=== PATIENT | female | born 1985 | race Caucasian/White ===

== ENCOUNTER → 2022-05-23 08:05 | Outpatient (CLI) | payer BC, SELFPAY ==
--- NOTE | ~2022-05-23 | US_ITS ---
US thyroid INDICATION: Thyroid nodule TECHNIQUE: Real-time sonographic images of the thyroid gland were obtained. COMPARISON: No prior studies for comparison. FINDINGS: The right thyroid lobe measures 5.2 x 1.6 x 1.3 cm. The left thyroid lobe measures 4.3 x 1 .8 x 1.3 cm. There is normal echotexture and echogenicity throughout the thyroid gland. There are sma ll bilateral thyroid cysts, largest measuring 4 mm, benign. No solid thyroid masses. Normal vascular flow is present. IMPRESSION: 1. Small bilateral thyroid cysts measuring up to 4 mm in the left lobe. Otherwise, unremarkable thyr oid ultrasound. Reviewed, dictated and finalized at location D. [facility] IMPRESSION: 1. Small bilateral thyroid cysts measuring up to 4 mm in the left lobe. Otherw ise, unremarkable thyroid ultrasound.
== END ==
PROVIDERS: PCP Internal Medicine Endocrinology, Diabetes & Metabolism; Visit Provider Internal Medicine Endocrinology, Diabetes & Metabolism
DX: E04.9 Nontoxic goiter, unspecified (principal)
CPT/HCPCS: 76536

== ENCOUNTER 2022-08-02 11:51 | Outpatient (CLI) | payer BC, SELFPAY ==
[2022-08-02 16:53] LABS: Kit Draw Collected
== END 2022-08-02 11:52 | disposition home or self-care (01) ==
LOC: ANHGOSHLAB 11:53
PROVIDERS: PCP Internal Medicine; Visit Provider Clinical Nurse Specialist
DX: R10.9 Unspecified abdominal pain (principal); E55.9 Vitamin D deficiency, unspecified; E16.2 Hypoglycemia, unspecified; R14.0 Abdominal distension (gaseous); D50.9 Iron deficiency anemia, unspecified
CPT/HCPCS: 36415

== ENCOUNTER 2022-08-02 12:46 | Outpatient (CLI) | payer BC, SELFPAY ==
--- NOTE | ~2022-08-02 | CT_ITS ---
EXAMINATION: CT abdomen pelvis w con INDICATION: Severe left lower quadrant pain TECHNIQUE: Computed tomographic images of the abdomen and pelvis were obtained after the administrati on of 100 cc of Omnipaque 350 intravenous contrast. The dose-length product (DLP) was 1632.53 mGy-cm. Automated exposure control and iterative reconstruction technique were employed. COMPARISON: None available FINDINGS: Minimal dependent atelectasis is present in the lung bases. The heart size is normal. Surgi george changes in the stomach likely relate to weight loss surgery. The gallbladder is surgically absent . The liver, spleen, pancreas, and adrenal glands are normal. No pathologically enlarged abdominal or pelvic lymph nodes are identified. There is no free intraperitoneal gas or evidence of bowel obstruc tion. The appendix is normal. An IUD is present in the uterus. There is mild lower lumbar spondylosis . Lucent centered calcifications anteriorly in the lower abdominal likely reflect areas of fat necros is related to prior surgery. IMPRESSION: 1. No CT correlate for the patient's symptoms. Reviewed, dictated and finalized at location B. [facility]
== END 2022-08-02 12:47 | disposition home or self-care (01) ==
LOC: ANHIMG 12:50
PROVIDERS: PCP Internal Medicine; Visit Provider Clinical Nurse Specialist
DX: R10.32 Left lower quadrant pain (principal)
CPT/HCPCS: 74177; Q9967

== ENCOUNTER 2022-09-29 01:35 | Day surgery (SDC) | payer BC, SELFPAY ==
[2022-09-19 13:56] VITALS: BMI 41.6
[2022-09-29 10:02] VITALS: BP 112/77; PULSE 77; RESP 20; TEMP 35.9; O2SAT 100
[2022-09-29] MEDS: LACTATED RINGERS 1,000 ML 150 ML IV CONT (10:18)
--- NOTE | 2022-09-29 10:33 | PM.HPGS ---
History of Present Illness History of Present Illness Consent: Risks, benefits, and alternatives have been discussed and questions answered. Patient agrees to proceed with procedure. Chief complaint: nausea, LLQP, Lower Abdominal pain, gaseous Narrative: Sushant Pritchard is a 37 year old female here for egd and colonoscopy. She had gastric bypass rou-en-y 2011 for weight loss, cholecystectomy 2012 with hernia repair and since with GI issues. She would have nausea after taking her medicines and sometimes will have to use restroom right away, never had normal BM, normally from constipation to loose. Recent office visit after severe pain in llq but resolved since nad CT scan without major findings, never had colonoscopy, had egd before gastric surgery. Review of Systems Constitutional: Constitutional: Denies headache(s) and Denies weakness Eyes: Eyes: Denies blurry vision ENT: Reports Normal hearing present, Denies headache(s) and Denies neck pain Cardiovascular: Cardiovascular: Denies chest pain and Denies dyspnea Respiratory: Respiratory: Denies dyspnea Gastrointestinal: Gastrointestinal: Reports no additional gastrointestinal complaints Genitourinary: Genitourinary: Denies dysuria Musculoskeletal: Musculoskeletal: Denies neck pain Integumentary/Breasts: Skin/Breast: Denies dry skin Neurologic: Reports Normal hearing present, Denies headache(s) and Denies weakness Psychiatric: Psychiatric: Denies anxiety Endocrine: Endocrine: Denies change in body appearance Hematologic/Lymphatic: Hematologic/Lymphatic: Denies easy bleeding Allergic/Immunologic: Allergic/Immunologic: Denies urticaria PMFSH Past Medical History Medical History (Updated 08/24/22 @ 14:50 by Carroll Pierce MD) Allergies Chicken pox Cholecystectomy planned Chronic pain Depression Generalized anxiety disorder Hernia Hypertension Insomnia Iron deficiency anemia LLQ pain Migraine Nausea Obesity PTSD (post-traumatic stress disorder) Tremor Surgical History Surgical History (Updated 08/24/22 @ 14:50 by Carroll Pierce MD) H/O abdominoplasty H/O bilateral breast reduction surgery H/O gastric bypass H/O LEEP January 2019 History of surgery on arm Brachioplasty Family History Family History Mother Diabetes mellitus Father Hypertension Family history of transient ischemic attacks Other Family history of malignant neoplasm of brain Social History Social History (Reviewed 08/24/22 @ 14:24 by SADI Owen Smoking status: Never smoker Second hand tobacco smoke exposure: No Alcohol intake: never Substance use: current Substance use type: marijuana Last use: daily Lack of Transportation: No Lack of Food: Never True Current Housing: I Have Housing Concerned About Future Housing: No Difficulty Paying Gas/Electric Bills: No Difficulty Paying for Meds: No Currently Unemployed: No Education: Master's Degree or Higher Difficulty w/ Childcare or Family Care: No Living arrangements: alone Spiritual care concerns: No Meds Home Medications and Allergies Home Medications Medication Instructions Recorded Confirmed Type multivitamin 1 tablet PO DAILY 07/08/19 09/20/22 History spironolactone 100 mg tablet 100 mg PO BID 07/08/19 09/20/22 History dextroamphetamine-amphetamine 20 20 mg PO TID 11/08/21 09/20/22 History mg tablet (Adderall) vitamin [id number] B1 100 mg-1 100 ml IM .once weekly 11/08/21 09/20/22 History mg/mL intramuscular solution lorazepam 1 mg tablet 2 mg PO BID 03/09/22 09/20/22 History sertraline 100 mg tablet 200 mg PO DAILY 03/09/22 09/20/22 History dicyclomine 10 mg capsule 10 mg PO TID PRN abdominal 08/02/22 09/20/22 Rx discomfort #30 caps doxepin 50 mg capsule 100 mg PO HS 08/02/22 09/20/22 History epinephrine 0.3 mg/0.3 mL 0.3 mg (0.3 mL) subcut ONCE #2 ea 08/02/22
--- NOTE | 2022-09-29 10:37 | WPDANESEPPF ---
Anes - Initial Pre Proc Eval Procedure: Operation Date: 09/29/22 11:15 Proposed Procedures p Esophagogastroduodenoscopy & Colonoscopy - Carroll Pierce MD Date/Time: 09/29/22 10:37 Surgeon: Carroll Pierce MD Pre Op Diagnosis: nausea, LLQP, Lower Abdominal pain, gaseous Patient Data Age: 37 Gender: F Height: 1.78 m Weight: 136.3 kg Last Vital Signs Temp 96.7 F L 09/29/22 10:02 Pulse 77 09/29/22 10:02 Resp 20 09/29/22 10:02 BP 112/77 09/29/22 10:02 Pulse Ox 100 09/29/22 10:02 O2 Del Method Room Air 09/29/22 10:02 Allergies Allergy/AdvReac Type Severity Reaction Status Date / Time egg Allergy Severe Difficulty Verified 09/29/22 09:59 Swallowing shellfish derived Allergy Stopped Verified 09/29/22 09:59 Breathing NSAIDS (Non-Steroidal AdvReac Severe Stomach Verified 09/29/22 09:59 Anti-Inflamma ulcers aspirin AdvReac Unknown Stomach Verified 09/29/22 09:59 ulcers tree nuts Allergy Severe Stopped Uncoded 09/29/22 09:59 Breathing coban AdvReac Hives Uncoded 09/29/22 09:59 Home Medications Medication Instructions Recorded Confirmed Type multivitamin 1 tablet PO DAILY 07/08/19 09/20/22 History spironolactone 100 mg tablet 100 mg PO BID 07/08/19 09/20/22 History dextroamphetamine-amphetamine 20 20 mg PO TID 11/08/21 09/20/22 History mg tablet (Adderall) vitamin Y77-cewsjia B1 100 mg-1 100 ml IM .once weekly 11/08/21 09/20/22 History mg/mL intramuscular solution lorazepam 1 mg tablet 2 mg PO BID 03/09/22 09/20/22 History sertraline 100 mg tablet 200 mg PO DAILY 03/09/22 09/20/22 History dicyclomine 10 mg capsule 10 mg PO TID PRN abdominal 08/02/22 09/20/22 Rx discomfort #30 caps doxepin 50 mg capsule 100 mg PO HS 08/02/22 09/20/22 History epinephrine 0.3 mg/0.3 mL 0.3 mg (0.3 mL) subcut ONCE #2 ea 08/02/22 09/20/22 Rx injection syringe ergocalciferol (vitamin D2) 1,250 1,250 mcg PO WEEKLY 08/02/22 09/20/22 History mcg (50,000 unit) capsule levonorgestrel 21 mcg/24 hours (8 1 device intrauterine ONCE 08/02/22 09/20/22 History yrs) 52 mg intrauterine device (Mirena) liothyronine 5 mcg tablet 5 mcg PO HS 08/02/22 09/20/22 History ondansetron HCl 4 mg tablet 4 mg PO DAILY PRN Nausea 08/02/22 09/20/22 History tirzepatide 5 mg/0.5 mL 5 mg subcut WEEKLY 08/02/22 09/20/22 History subcutaneous pen injector (Mounjaro) rizatriptan 10 mg tablet See Rx Instructions .Route 08/09/22 09/20/22 Rx .COMPLEX #9 tabs buspirone 15 mg tablet 10 mg PO BID 08/24/22 09/20/22 History Patient hx anesthesia problems: none Family hx anesthesia problems: none Results Review: All pre-operative results and documents have been reviewed as part of the pre-operative evaluation. [facility] Past Medical History Medical History (Updated 08/24/22 @ 14:50 by Carroll Pierce MD) Allergies Chicken pox Cholecystectomy planned Chronic pain Depression Generalized anxiety disorder Hernia Hypertension Insomnia Iron deficiency anemia LLQ pain Migraine Nausea Obesity PTSD (post-traumatic stress disorder) Tremor Surgical History Surgical History (Updated 08/24/22 @ 14:50 by Carroll Pierce MD) H/O abdominoplasty H/O bilateral breast reduction surgery H/O gastric bypass H/O LEEP January 2019 History of surgery on arm Brachioplasty Family History Family History Mother Diabetes mellitus Father Hypertension Family history of transient ischemic attacks Other Family history of malignant neoplasm of brain Social History Social History Smoking status: Never smoker Second hand tobacco smoke exposure: No Alcohol intake: never Substance use: current Substance use type: marijuana Last use: daily Lack of Transportation: No Lack of Food: Never True Current Housing: I
[2022-09-29] MEDS: BENZOCAINE (*SP) 60 ML SPRAY CAN (HURRICAINE) 1 SPRAY MUCOUS MEM (10:39)
--- NOTE | 2022-09-29 10:48 | SUR.OPER ---
EGD start 1041 end 1044, Colon start 1048
[2022-09-29 11:00] VITALS: BP 113/76; PULSE 89; RESP 19; O2SAT 95
[2022-09-29 11:10] VITALS: BP 116/75; PULSE 82; RESP 19; O2SAT 99
[2022-09-29 11:20] VITALS: BP 117/75; PULSE 72; RESP 18; O2SAT 98
== END 2022-09-29 11:29 | disposition home or self-care (01) ==
PROVIDERS: PCP Internal Medicine; Visit Provider Internal Medicine Gastroenterology
PROC: 0DJ08ZZ Inspection of Upper Intestinal Tract, Via Natural or Artificial Opening Endoscopic (ICD-10-PCS; CPT 43235; principal; 2022-09-29 11:15)
DX: R10.32 Left lower quadrant pain (principal); K64.8 Other hemorrhoids; R11.0 Nausea; Z98.84 Bariatric surgery status; I10 Essential (primary) hypertension; F41.1 Generalized anxiety disorder; F32.A Depression, unspecified; F43.10 Post-traumatic stress disorder, unspecified; F12.90 Cannabis use, unspecified, uncomplicated; E66.01 Morbid (severe) obesity due to excess calories; Z68.41 Body mass index [BMI] 40.0-44.9, adult
CPT/HCPCS: 45378; 43239; 88305; J2704; J7120